=== PATIENT | female | born 1965 | race Caucasian/White ===

== ENCOUNTER 2018-11-05 10:49 | Emergency (ER) | payer OTHER, SELFPAY | END 2018-11-05 11:12 | disposition home or self-care (01) | LOC: BURERS 10:49 | DX: J98.01 Acute bronchospasm (principal); J06.9 Acute upper respiratory infection, unspecified; F41.9 Anxiety disorder, unspecified; K21.9 Gastro-esophageal reflux disease without esophagitis; I25.2 Old myocardial infarction; I10 Essential (primary) hypertension; F17.210 Nicotine dependence, cigarettes, uncomplicated; Z79.899 Other long term (current) drug therapy; Z79.82 Long term (current) use of aspirin | CPT/HCPCS: 99283 ==

== ENCOUNTER 2018-12-16 08:40 | Emergency (ER) | payer OTHER, SELFPAY ==
[2018-12-16] MEDS ORDERED: Ketorolac Tromethamine 60 MG/2 ML VIAL ONE (09:34)
[2018-12-16] MEDS ORDERED: traMADol HCl 50 MG TAB ONE (09:34)
== END 2018-12-16 09:41 | disposition home or self-care (01) ==
LOC: BURERS 08:40
DX: M54.16 Radiculopathy, lumbar region (principal); I25.2 Old myocardial infarction; K21.9 Gastro-esophageal reflux disease without esophagitis; E78.5 Hyperlipidemia, unspecified; F41.9 Anxiety disorder, unspecified; F32.9 Major depressive disorder, single episode, unspecified; F17.210 Nicotine dependence, cigarettes, uncomplicated; Z79.899 Other long term (current) drug therapy; Z79.82 Long term (current) use of aspirin
CPT/HCPCS: 96372; 99283; J1885

== ENCOUNTER 2019-02-09 09:33 | Emergency (ER) | payer OTHER ==
[2019-02-09 10:04] LABS: #Basophils 0.1 thou/uL (0.0-0.2); #Eosinphils 0.1 thou/uL (0.0-0.7); #Monocytes 0.5 thou/uL (0.11-0.59); #Neutrophils 3.6 thou/uL (1.40-6.50); %Basophils 0.9 % (0.0-1.0); %Eosinophils 1.6 % (0.0-10.0); %Lymphocytes 41.4 % (21.0-51.0); %Monocytes 6.3 % (0.0-10.0); %Neutrophils 49.8 % (42.0-75.0); Hemoglobin 13.9 g/dL (12.0-16.0); Mean Corpuscular HGB CONC 33.4 g/dL (32.0-36.0); Mean Corpuscular Hemoglobin 28.4 pg (27.0-31.0); Mean Corpuscular Volume 85.1 fL (78.0-98.0); Mean Platelet Volume 6.7 fL (7.4-10.4); Platelet Count 291 thou/uL (130-400); RBC Distribution Width 12.7 % (11.5-14.5); Red Blood Cell (RBC) Count 4.91 mill/uL (4.20-5.40); White Blood Cell (WBC) Count 7.2 thou/uL (4.8-10.8)
[2019-02-09 10:22] LABS: ALT (SGPT) 14 U/L (8-55); AST (SGOT) 17 U/L (5-34); Albumin 4.9 g/dL (3.5-5.0); Alkaline Phosphatase 86 U/L (40-150); Anion Gap 13 mmol/L (10-20); BUN (Urea Nitrogen) 9 mg/dL (9.8-20.1); Bilirubin, Total 0.6 mg/dL (0.2-1.2); Calc. Creatinine Clearance 0 mL/min (70-130); Carbon Dioxide 28 mmol/L (22-29); Chloride 104 mmol/L (98-107); Estimated GFR-MDRD 62; Globulin 3.1 g/dL (2.4-3.5); Glucose 112 mg/dL (70-105); Lipase 63 U/L (8-78); Potassium 4.1 mmol/L (3.5-5.1); Sodium 141 mmol/L (136-145)
[2019-02-09] MEDS ORDERED: Nitroglycerin 0.4 MG TAB 1 EACH ONE (10:27)
[2019-02-09] MEDS ORDERED: Aspirin Chewable 81 MG TAB ONE (10:27)
--- NOTE | 2019-02-09 13:12 | RAD ---
PORTABLE CHEST: Date: 02/09/19 An AP portable film at 0956 hours is compared with the 08/12/15 study. There has been no substantial interval change. The heart is normal in size and the lungs are clear. T here is no vascular congestion or edema. The left pulmonary artery is slightly more prominent than th e right, but it was before. A calcified granuloma is seen in the periphery of the right upper lobe an d has not changed over time. IMPRESSION: No definite acute finding. Left pulmonary artery a little more prominent than right, but somewhat sim ilar to the prior exam. If concerns persist, then a CT could potentially be helpful. POS: HOME
== END 2019-02-09 12:58 | disposition home or self-care (01) ==
LOC: BURERS 09:33
DX: R07.2 Precordial pain (principal); I25.2 Old myocardial infarction; K21.9 Gastro-esophageal reflux disease without esophagitis; E78.5 Hyperlipidemia, unspecified; F41.9 Anxiety disorder, unspecified; F32.9 Major depressive disorder, single episode, unspecified; F17.210 Nicotine dependence, cigarettes, uncomplicated; Z79.82 Long term (current) use of aspirin; Z79.899 Other long term (current) drug therapy
CPT/HCPCS: 71045; 80053; 83690; 83880; 84484; 85025; 93005

== ENCOUNTER 2019-04-14 06:53 | Emergency (ER) | payer OTHER | END 2019-04-14 07:09 | disposition home or self-care (01) | LOC: BURERS 06:53 | DX: J06.9 Acute upper respiratory infection, unspecified (principal); E78.5 Hyperlipidemia, unspecified; K21.9 Gastro-esophageal reflux disease without esophagitis; I25.2 Old myocardial infarction; F41.9 Anxiety disorder, unspecified; F32.9 Major depressive disorder, single episode, unspecified; F17.210 Nicotine dependence, cigarettes, uncomplicated | CPT/HCPCS: 99281 ==

== ENCOUNTER 2019-06-08 21:27 | Emergency (ER) | payer OTHER, SELFPAY ==
--- NOTE | 2019-06-08 22:25 | RAD ---
TWO VIEWS OF THE LEFT HIP: Date: 06-08-19 History: Pain. FINDINGS: No acute fracture or evidence of dislocation is seen. No significant degenerative change is present. IMPRESSION: No acute osseous abnormality. POS: [facility]
[2019-06-08] MEDS ORDERED: traMADol HCl 50 MG TAB ONE (22:49)
== END 2019-06-08 22:52 | disposition home or self-care (01) ==
LOC: BURERS 21:27
DX: M25.552 Pain in left hip (principal); M54.5 Low back pain; K21.9 Gastro-esophageal reflux disease without esophagitis; I25.2 Old myocardial infarction; E78.5 Hyperlipidemia, unspecified; F41.9 Anxiety disorder, unspecified; F17.210 Nicotine dependence, cigarettes, uncomplicated; F32.9 Major depressive disorder, single episode, unspecified; Z79.82 Long term (current) use of aspirin; Z79.899 Other long term (current) drug therapy; X50.1XXA Overexertion from prolonged static or awkward postures, initial encounter

== ENCOUNTER 2019-06-19 14:14 | Outpatient (CLI) | payer OTHER ==
--- NOTE | 2019-06-19 19:08 | RAD ---
CHEST TWO VIEWS: 06/19/19 Comparison is made with the 02/09/19 study. The heart remains normal in size. There is no vascular congestion or edema. The left pulmonary artery is a little more prominent than the right, but no different than it was before. There is no focal in filtrate or effusion. There is no vascular congestion or edema. Calcified granuloma is seen in the la teral aspect of the right upper lobe and has not changed since the last study. IMPRESSION: No acute thoracic findings. POS: HOME
== END 2019-06-19 14:15 | disposition home or self-care (01) ==
LOC: BURRAD 14:14
PROVIDERS: ATTEND Physician Assistant
DX: J40 Bronchitis, not specified as acute or chronic (principal)
CPT/HCPCS: 71046